=== PATIENT | male | born 1970 | race Caucasian/White ===

== ENCOUNTER 2018-10-29 09:46 | Emergency (ER) | payer OTHER ==
[~2018-10-29] VITALS: Ht 175.3 cm; Wt 81.2 kg
[2018-10-29 09:50] VITALS: BP_SYST 143
[2018-10-29 11:31] VITALS: BP_SYST 133
== END 2018-10-29 11:31 | disposition home or self-care (01) ==
LOC: SED 09:46
DX: R00.2 Palpitations (principal); R03.0 Elevated blood-pressure reading, without diagnosis of hypertension
CPT/HCPCS: 93005; 99283